=== PATIENT | male | born 1945 | race Two or more races ===

== ENCOUNTER 2020-09-29 10:08 | Outpatient (CLI) | payer SELFPAY ==
[2020-09-29] MEDS ORDERED: LIDOCAINE SOLN 4% 50 ML BOTTLE ONE (10:42)
== END 2020-09-29 23:59 | disposition home or self-care (01) ==
LOC: WOU 10:08
PROVIDERS: ATTEND Podiatrist Foot & Ankle Surgery
DX: I96 Gangrene, not elsewhere classified (principal); S91.302A Unspecified open wound, left foot, initial encounter; X58.XXXA Exposure to other specified factors, initial encounter; Y92.89 Other specified places as the place of occurrence of the external cause; R60.0 Localized edema; Z89.611 Acquired absence of right leg above knee; Z79.899 Other long term (current) drug therapy
CPT/HCPCS: G0463